=== PATIENT | female | born 1965 | race Hispanic/Latino ===

== ENCOUNTER 2024-09-14 06:53 | Emergency (ER) | payer OTHER, SELFPAY ==
[2024-09-14 08:03] LABS: Absolute Basophils 0.1 K/uL (0-0.5); Absolute Eosinophils 0.2 K/uL (0-0.5); Absolute Monocytes 0.4 K/uL (0.1-1.3); Absolute Neutrophil 2.9 K/uL (1.8-8.0); Basophils % 1.4 % (0-1.3); Eosinophils % 2.8 % (0-4.4); Hematocrit 35.5 % (36.0-45.0); Hemoglobin 10.8 g/dL (12.0-15.0); Lymphocytes % 35.4 % (15.3-44.8); MCH 21.1 pg (27.0-35.0); MCHC 30.6 g/dL (32.0-36.0); MCV 69.1 fL (80-100); MPV 8.3 fL (7.6-11.3); Monocytes % 7.7 % (3.3-12.3); Neutrophils % 52.7 % (41.7-73.7); Nucleated Red Blood Cells % 0.2 % (0-0); Platelets 392 thou/uL (152-406); RBC Red Blood Cell Count 5.13 M/uL (3.86-4.86); Red Cell Distribution Width 26.7 % (12.1-15.2)
--- NOTE | 2024-09-14 08:14 | RAD REPORT ---
EXAMINATION: ONE VIEW CHEST XR CLINICAL INDICATION: Female, 59 years old.,CHEST PAIN TECHNIQUE: Frontal chest projection is submitted. Examination is limited by patient positioning and t echnique. COMPARISON: No prior exam. FINDINGS: The lungs are grossly clear although suboptimal inspiratory effort somewhat limits evaluation. No pn eumothorax or sizable effusion. The heart is normal in size. Mediastinal contours are unremarkable. IMPRESSION: No acute intrathoracic abnormalities.
[2024-09-14 08:17] LABS: Anion Gap 8.6 mEq/L (5.0-15.0); BUN Blood Urea Nitrogen 6 mg/dL (7-18); Bicarbonate 30 mEq/L (21-32); Glomerular Filtration Rate 91 ml/min (=/>90); Glucose Level 113 mg/dL (74-106); Potassium 3.6 mEq/L (3.5-5.1); Sodium Level 140 mEq/L (136-145); Troponin High Sensitivity < 3.0 pg/mL (<58.9)
[2024-09-14 08:49] LABS: Anisocytosis 2+; Blood Morphology Comment NOTED (NOT SEEN); Hypochromasia 1+; Microcytosis 2+; Platelet Estimate ADEQ; White Blood Cell Scan OK (OK)
--- NOTE | 2024-09-14 09:00 | EDPHYS ---
Physician Documentation [facility] Name: Natali Calle Age: 59 yrs Sex: Female : 1965 Arrival Date: 09/14/2024 Time: 06:53 Bed 20 Private MD: ED Physician Kenyon Flowers HPI: 09/14 09:00 This 59 yrs old Female presents to ER via Ambulatory with complaints of ms3 Weakness, Shortness Of Breath. 09:00 59-year-old female with past medical history of iron deficiency anemia, ms3 hypercholesterolemia, arthritis presents to the emergency department for generalized weakness, racing heart rate, dizziness, lightheadedness. Patient states she is prepping for a colonoscopy that was to be performed today. Patient notes she has required blood transfusions in the past. Patient denies pain at this time. Patient states her symptoms are better when she is sitting. She denies any inciting factors.. Historical: - Allergies: 07:19 No Known Allergies; ss - Home Meds: 07:55 hydrocodone [Active]; tramadol [Active]; aa5 - PMHx: 07:19 iron deficiency anemia; ss 07:55 Hypercholesterolemia; aa5 07:55 Arthritis; aa5 - PSHx: 07:55 sx to esophagus; bone fusion L5 S1; L Hip replacement; Lap band removal; aa5 ROS: 09:00 Constitutional: Negative for fever, and chills. Respiratory: Negative for shortness of ms3 breath, cough, wheezing, and pleuritic chest pain, Abdomen/GI: Negative for abdominal pain, nausea, vomiting, diarrhea, and constipation, 09:00 MS/Extremity: Negative for injury and deformity, 09:00 Cardiovascular: Positive for palpitations, 09:00 Neuro: Positive for dizziness, Exam: 07:48 ECG was reviewed by the Attending Physician. ms3 09:00 Constitutional: This is a well developed, well nourished patient who is awake, alert, ms3 and in no acute distress. Cardiovascular: Regular rate and rhythm with a normal S1 and S2. No gallops, murmurs, or rubs. Normal PMI, no JVD. No pulse deficits. Respiratory: Lungs have equal breath sounds bilaterally, clear to auscultation and percussion. No rales, rhonchi or wheezes noted. No increased work of breathing, no retractions or nasal flaring. Abdomen/GI: Soft, non-tender, with normal bowel sounds. No distension or tympany. No guarding or rebound. No evidence of tenderness throughout. Skin: Warm, dry with normal turgor. Normal color with no rashes, no lesions, and no evidence of cellulitis. MS/ Extremity: Pulses equal, no cyanosis. Neurovascular intact. Full, normal range of motion. Neuro: Awake and alert, GCS 15, oriented to person, place, time, and situation. Cranial nerves II-XII grossly intact. Motor strength 5/5 in all extremities. Sensory grossly intact. Cerebellar exam normal. Normal gait. Vital Signs: 07:12 BP 113 / 75; Pulse 77; Resp 16; Temp 97.8(O); Pulse Ox 100% ; Weight 83.46 kg; Height 5 ss ft. 5 in. ; Pain 0/10; 09:30 BP 113 / 76; Pulse 67; Resp 14 S; Pulse Ox 99% on R/A; aa5 07:12 Body Mass Index 30.62 (83.46 kg, 165.1 cm) ss 07:12 Pain Scale: Adult ss MDM: 07:23 Medical Screening Exam initiated ms3 09:00 Data reviewed: vital signs, nurses notes, and as a result, I will discharge patient. ms3 Independent interpretation of the following test(s) in the Emergency Department EKG: See my EKG interpretation above. Counseling: I had a detailed discussion with the patient and/or guardian regarding the historical points, exam findings, and any diagnostic results supporting the discharge/admit diagnosis, lab results, radiology results, the need for outpatient follow up, to return to the emergency department if symptoms worsen or persist or if there are any questions or concerns that arise at home. Special discussion: I discussed with the patient/guardian in detail that at this point there is no indication for admission to the hospital. It is understood, however, that if the symptoms persist or worsen the patient needs to return immediately for re-evaluation. ED course: On reevaluation patient is alert and orient x 4, no apparent distress, nontoxic-appearing, speaking full sentences. Patient to follow-up with her primary care physician in 2 to 3 days. Patient understands and agrees with plan. All questions were answered. Return precautions discussed include worsening symptoms, or any other concerns.. 09/14 07:08 Order name: Basic Metabolic Panel; Complete Time: 08:45 ms3 09/14 07:08 Order name: CBC with Diff; Complete Time: 08:56 ms3 09/14 07:08 Order name: Troponin HS; Complete Time: 08:45 ms3 09/14 08:49 Order name: CBC Smear Scan; Complete Time: 08:56 EDMS 09/14 07:08 Order name: XRAY Chest (1 view); Complete Time: 08:45 ms3 09/14 07:08 Order name: EKG; Complete Time: 07:09 ms3 09/14 07:08 Order name: Cardiac monitoring; Complete Time: 07:29 ms3 09/14 07:08 Order name: EKG - Nurse/Tech; Complete Time: 07:29 ms3 09/14 07:08 Order name: IV Saline Lock; Complete Time: 07:54 ms3 09/14 07:08 Order name: Labs collected and sent; Complete Time: 07:54 ms3 09/14 07:08 Order name: O2 Per Protocol; Complete Time: 07:29 ms3 09/14 07:08 Order name: O2 Sat Monitoring; Complete Time: 07:29 ms3 EC:48 Rate is 76 beats/min. Rhythm is regular. QRS Triangle is Normal. MT interval is normal. QRS ms3 interval is normal. QT interval is normal. Clinical impression: Normal ECG. Interpreted by me. Reviewed by me. Administered Medications: No medications were administered Disposition Summary: 09/14/24 09:00 Discharge Ordered Notes: Location: Home ms3 Condition: Stable ms3 Diagnosis - Muscle weakness (generalized) ms3 - Palpitations ms3 Followup: ms3 - With: Ronald Graham DO - When: 2 - 3 days - Reason: Recheck today's complaints Discharge Instructions: - Discharge Summary Sheet ms3 - Palpitations ms3 - Weakness, [id number] ms3 Forms: - Medication Reconciliation Form ms3 - Antibiotic Education ms3 - Prescription Opioid Use ms3 - Patient Portal Instructions ms3 - Leadership Thank You Letter ms3 Signatures: Dispatcher [employer] Meredith Soliman, RN RN aa5 Carito Booker RN RN ss Kenyon Flowers, DO ms3
--- NOTE | 2024-09-14 09:00 | ER ---
Nurse's Notes [facility] Name: Natali Calle Age: 59 yrs Sex: Female : 1965 Arrival Date: 09/14/2024 Time: 06:53 Bed 20 Private MD: Diagnosis: Muscle weakness (generalized);Palpitations Presentation: 09/14 07:12 Chief complaint: Patient states: Partial colonoscopy on Saturday. Dr. Malcolm had to stop ss as there was still stool in the upper bowel. Pt was given prep again yesterday, but had water, black stool this morning. Dr. Malcolm directed pt to come to ER for further evaluation and treatment as her hgb was already reportedly low. Coronavirus screen: Client denies travel out of the [place] in the last 14 days. Ebola Screen: Patient denies exposure to infectious person. Patient denies travel to an Ebola-affected area in the 21 days before illness onset. Initial Sepsis Screen: Does the patient meet any 2 criteria? No. Patient's initial sepsis screen is negative. Does the patient have a suspected source of infection? No. Patient's initial sepsis screen is negative. Risk Assessment: Do you want to hurt yourself or someone else? Patient reports no desire to harm self or others. Onset of symptoms was September 14, 2024. 07:12 Method Of Arrival: Ambulatory ss 07:12 Acuity: JUSTIN 3 ss Historical: - Allergies: 07:19 No Known Allergies; ss - Home Meds: 07:55 hydrocodone [Active]; tramadol [Active]; aa5 - PMHx: 07:19 iron deficiency anemia; ss 07:55 Hypercholesterolemia; aa5 07:55 Arthritis; aa5 - PSHx: 07:55 sx to esophagus; bone fusion L5 S1; L Hip replacement; Lap band removal; aa5 Screenin:15 [facility] ED Fall Risk Assessment (Adult) History of falling in the last 3 months, aa5 including since admission Yes- single mechanical fall (1 pt) Confusion or Disorientation No (0 pts) Intoxicated or Sedated No (0 pts) Impaired Gait Yes (1 pt) Mobility Assist Device Used Yes (1 pt) Altered Elimination No (0 pt) Score/Fall Risk Level 3 or more points = High Risk Oriented to surroundings, Maintained a safe environment, Educated pt \T\ family on fall prevention, incl call for assistance when getting out of bed, Assessed \T\ reinforced patient's understanding of fall precautions. Abuse screen: Denies threats or abuse. Nutritional screening: No deficits noted. Tuberculosis screening: No symptoms or risk factors identified. Assessment: 07:15 General: Appears in no apparent distress. comfortable, well groomed. Pain: Complains of aa5 pain in left hip Pain does not radiate. Pain currently is 4 out of 10 on a pain scale. Quality of pain is described as aching, Pain began 1 week ago Is intermittent, Alleviated by medications, rest. Neuro: Level of Consciousness is awake, alert, obeys commands, Oriented to person, place, time, situation, Appropriate for age. Cardiovascular: Patient's skin is warm and dry. Respiratory: Respiratory effort is even, unlabored, Respiratory pattern is regular, symmetrical. GI: Abdomen is round Bowel sounds present X 4 quads. Abd is soft and non tender X 4 quads. Reports black stool today. : No signs and/or symptoms were reported regarding the genitourinary system. EENT: No signs and/or symptoms were reported regarding the EENT system. Derm: Skin is pink, warm \T\ dry. 07:15 Musculoskeletal: Range of motion: limited in left hip Reports left hip replacement aa5 09/12/2024 Ambulatory with cane. 08:00 Reassessment: Patient is alert, oriented x 3, equal unlabored respirations, skin aa5 warm/dry/pink. 09:30 Reassessment: Patient is alert, oriented x 3, equal unlabored respirations, skin aa5 warm/dry/pink. 09:40 Reassessment: Patient is alert, oriented x 3, equal unlabored respirations, skin aa5 warm/dry/pink. Vital Signs: 07:12 BP 113 / 75; Pulse 77; Resp 16; Temp 97.8(O); Pulse Ox 100% ; Weight 83.46 kg; Height 5 ss ft. 5 in. ; Pain 0/10; 09:30 BP 113 / 76; Pulse 67; Resp 14 S; Pulse Ox 99% on R/A; aa5 07:12 Body Mass Index 30.62 (83.46 kg, 165.1 cm) 07:12 Pain Scale: Adult ED Course: 06:54 Patient arrived in ED. [email or web address] 07:05 Kenyon Flowers DO is Attending Physician. ms3 07:05 Meredith Mora, RN is Primary Nurse. aa5 07:15 Arm band placed on right wrist. aa5 07:15 Patient has correct armband on for positive identification. Bed in low position. Call aa5 light in reach. Side rails up X 1. Adult w/ patient. Client placed on continuous cardiac and pulse oximetry monitoring. NIBP monitoring applied. nurse monitoring on. Pulse ox on. NIBP on. 07:19 Triage completed. ss 07:41 XRAY Chest (1 view) In Process Unspecified. EDMS 07:45 Missed attempt(s): 22 gauge in right forearm. Bleeding controlled, band aid applied, aa5 catheter tip intact. 07:50 Initial lab(s) drawn, by me, sent to lab. Inserted saline lock: 20 gauge in left aa5 antecubital area, using aseptic technique. Blood collected. Flushed with 10 mL NS. 08:59 Ronald Graham DO is Referral Physician. ms3 09:40 No provider procedures requiring assistance completed. IV discontinued, intact, aa5 bleeding controlled, No redness/swelling at site. Pressure dressing applied. Administered Medications: No medications were administered Medication: 09:30 VIS not applicable for this client. aa5 Outcome: 09:00 Discharge ordered by MD. ms3 09:40 Discharged to home via wheelchair, with family, aa5 09:40 Condition: stable 09:40 Discharge instructions given to patient, Instructed on discharge instructions, follow up and referral plans. Demonstrated understanding of instructions, follow-up care, 09:45 Patient left the ED. aa5 Signatures: Dispatcher [employer] EDID Meredith Mora, ROBBY RN aa5 Carito Booker RN RN Kenyon Flowers DO DO ms3 Freda Martinez jj6 Corrections: (The following items were deleted from the chart) 08:16 07:58 Pain: Complains of pain in pelvis Pain does not radiate. Pain currently is 4 out aa5 of 10 on a pain scale. Quality of pain is described as aching, Pain began 1 week ago Is intermittent, Alleviated by medications, rest, aa5 08:16 07:58 Musculoskeletal: Range of motion: intact in all extremities, aa5 aa5 08:18 07:58 General: Appears in no apparent distress. comfortable, well groomed, aa5 aa5 :18 07:58 Neuro: Level of Consciousness is awake, alert, obeys commands, Oriented to aa5 person, place, time, situation, Appropriate for age aa5 :18 07:58 Cardiovascular: Patient's skin is warm and dry. aa5 aa5 :18 07:58 Respiratory: Respiratory effort is even, unlabored, Respiratory pattern is aa5 regular, symmetrical, aa5 :18 07:58 GI: Abdomen is round aa5 aa5 :18 07:58 : No signs and/or symptoms were reported regarding the genitourinary system. aa5aa5 :18 07:58 EENT: aa5 aa5 07:58 Derm: Skin is pink, warm \T\ dry. aa5 aa5 :18 07:58 EENT: No signs and/or symptoms were reported regarding the EENT system. aa5 aa5 :18 07:58 Pain: Complains of pain in left hip Pain does not radiate. Pain currently is 4 aa5 out of 10 on a pain scale. Quality of pain is described as aching, Pain began 1 week ago Is intermittent, Alleviated by medications, rest, aa5 :18 07:58 Musculoskeletal: Range of motion: limited in left hip Reports left hip aa5 replacement 09/12/2024 aa5 09:43 07:15 GI: Abdomen is round aa5 aa5 09:45 07:19 Arm band placed on right wrist. aa5
[2024-09-14 09:55] VITALS: TEMP 97.8
[2024-09-14 10:00] VITALS: BP 113/76; O2SAT 99
--- NOTE | 2024-09-16 12:40 | EKG ---
Test Date: 2024-09-14 Test Time: 07:25:22 Checker: JESÚS MEASUREMENT RESULTS: Intervals: Rate: 76 [place]: 128 QRSD: 76 QT: 430 QTc: 483 Moody: P: 45 KY: 128 QRS: 7 T: 29 INTERPRETIVE STATEMENTS: Normal sinus rhythm Prolonged QT Abnormal ECG No previous ECG available for comparison Electronically Signed On 09-16-24 12:29:25 CDT by Allan Santoyo
== END 2024-09-14 09:45 | disposition home or self-care (01) ==
LOC: ER 06:53
DX: M62.81 Muscle weakness (generalized) (principal); R00.2 Palpitations
CPT/HCPCS: 36415; 71045; 80048; 84484; 85025; 93005; 99284